=== PATIENT | female | born 2000 | race Caucasian/White ===

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

== ENCOUNTER 2018-09-27 09:21 | Outpatient (CLI) | payer MEDICAID ==
--- NOTE | 2018-09-28 02:04 | XRAY Report ---
Reason: rib pain, left Procedure Date: 09/27/2018 Accession Number: [id number] / [id number] Procedure: XRN - Ribs 2 View LT CPT Code: FULL RESULT: EXAM: LEFT RIB RADIOGRAPHY EXAM DATE: 09/27/2018 10:05 AM. CLINICAL HISTORY: Rib pain, left. COMPARISON: None. TECHNIQUE: 3 views. Radiopaque marker in region of interest. FINDINGS: Bones: No evidence of left rib fracture. Lungs: No focal opacities evident in left lung. No obvious pneumothorax or pleural effusion. Mediastinum: Heart and cardiomediastinal contours are unremarkable on provided images. Other: None. IMPRESSION: No evidence of left rib fracture. [facility]
== END 2018-09-27 09:22 | disposition home or self-care (01) ==
LOC: DI.N 09:21
PROVIDERS: ATTEND Family Medicine
DX: R07.81 Pleurodynia (principal)